=== PATIENT | male | born 1975 | race Caucasian/White ===

== ENCOUNTER 2024-05-19 17:19 | Outpatient (CLI) | payer SELFPAY | END 2024-05-19 17:20 | disposition home or self-care (01) | LOC: AMB 05-29 08:39 | PROVIDERS: Visit Provider Family Medicine | DX: T14.90XA Injury, unspecified, initial encounter (principal); V49.9XXA Car occupant (driver) (passenger) injured in unspecified traffic accident, initial encounter; Y92.410 Unspecified street and highway as the place of occurrence of the external cause | CPT/HCPCS: A0998 ==